=== PATIENT | female | born 1960 | race African-American/Black ===

== ENCOUNTER 2023-08-08 14:47 | Inpatient (IN) | payer OTHER ==
[2023-08-08 15:46] VITALS: BMI 20.9
[2023-08-08] MEDS ORDERED: MAG HYDROX/AL HYDROX/SIMETH 30 ML UNIT-DOSE CUP PO PRN (16:23)
[2023-08-08] MEDS ORDERED: IBUPROFEN 600 MG TABLET (FP) PO PRN (16:23)
[2023-08-08] MEDS ORDERED: NALOXONE HCL 0.4 MG/ML VIAL IM PRN (16:23)
[2023-08-08] MEDS ORDERED: guaiFENesin 600 MG TABLET.ER (FP) PO PRN (16:23)
[2023-08-08] MEDS ORDERED: POLYETHYLENE GLYCOL (HEALTHYLAX) 3350 17 GM PACKET PO PRN (16:23)
[2023-08-08] MEDS ORDERED: BENZOCAINE/MENTHOL (CHLORASEPTIC ) LOZENGE MM PRN (16:23)
[2023-08-08] MEDS ORDERED: BENZONATATE 200 MG CAPSULE PO PRN (16:23)
[2023-08-08] MEDS ORDERED: NALOXONE HCL (KLOXXADO) 8 MG SPRAY NS PRN (16:23)
[2023-08-08] MEDS ORDERED: MAGNESIUM HYDROX 2400MG/30ML ORAL SUSPENSION 30 ML CUP PO PRN (16:23)
[2023-08-08] MEDS ORDERED: IBUPROFEN 400 MG TABLET (FP) PO PRN (16:23)
[2023-08-08] MEDS ORDERED: LOPERAMIDE HCL 2 MG CAPSULE PO PRN (16:23)
[2023-08-08] MEDS ORDERED: TUBERCULIN PPD 5 TU/0.1ML VIAL ID ONE ×2 (19:18→22:19)
[2023-08-08] MEDS: TUBERCULIN PPD 5 TU/0.1ML SYRINGE (IN PATIENT USE ONLY) ID ONE (19:43)
[2023-08-08] MEDS: MELATONIN 5 MG TABLETS PO SCH (21:33)
[2023-08-08] MEDS: THIAMINE 100 MG TABLET PO SCH (21:33)
[2023-08-08] MEDS: NAPROXEN 500 MG TABLET PO SCH (21:35)
[2023-08-08] MEDS: DOCUSATE SODIUM 100 MG CAPSULE (FP) PO SCH (21:35)
[2023-08-09] MEDS: LEVOTHYROXINE NA 100 MCG TABLET (FP) PO SCH (06:14)
[2023-08-09] MEDS: PRENATAL VITAMINS W/ FOLIC ACID TABLET (FP) PO SCH (09:57)
[2023-08-09] MEDS: PANTOPRAZOLE 40 MG TABLET PO SCH (09:57)
[2023-08-09] MEDS: ASPIRIN 81 MG CHEWABLE TABLETS PO SCH (09:57)
[2023-08-09] MEDS ORDERED: NALOXONE HCL 0.4 MG/ML VIAL IVPUSH PRN (14:26)
[2023-08-09] MEDS ORDERED: NALOXONE (NYS OPIOID OVERDOSE PROGRAM) 4 MG/0.1 ML SPRAY NS PRN (14:26)
[2023-08-09] MEDS ORDERED: IBUPROFEN 600 MG TABLET (FP) PO PRN (14:26)
[2023-08-09] MEDS ORDERED: IBUPROFEN 400 MG TABLET (FP) PO PRN (14:26)
[2023-08-09] MEDS: METHOCARBAMOL 500 MG TABLET PO PRN (15:28)
[2023-08-09 15:52] LABS: EPI CELLS >36 /uL (0-25.1); HYALINE CASTS 4 /uL (0-3.1); PH,URINE 5.5 (5.0-8.0); URINE APPEARANCE CLOUDY; URINE BACTERIA >9,000 /uL (0-1359); URINE BILIRUBIN NEGATIVE (NEGATIVE); URINE COLOR YELLOW; URINE GLUCOSE (UA) NEGATIVE (NEGATIVE); URINE KETONE NEGATIVE (NEGATIVE); URINE LEUK ESTERASE 1+ (NEGATIVE); URINE NITRITE POSITIVE (NEGATIVE); URINE PROTEIN 1+ (NEGATIVE); URINE RBC 9 /uL (0-23.9); URINE UROBILINOGEN 0.2 mg/dL (0.2-1.0); URINE WBC 182 /uL (0-25.8)
[2023-08-09] MEDS: FERROUS SO4 325 MG TABLET (FP) PO SCH (19:40)
[2023-08-09] MEDS: ACETAMINOPHEN 325 MG TABLET (FP) PO PRN (19:41)
[2023-08-09] MEDS: NICOTINE POLACRILEX 2 MG GUM BUC PRN (19:43)
[2023-08-10] MEDS: ONDANSETRON *ODT* 4 MG TABLET SL PRN (07:37)
[2023-08-10] MEDS: NICOTINE 21 MG/24 HOURS TOPICAL PATCH TD SCH (09:53)
[2023-08-10] MEDS ORDERED: diazePAM 5 MG TABLET PO PRN (10:42)
[2023-08-10] MEDS ORDERED: BUPRENORPHINE HCL 150 MCG, BUPRENORPHINE HCL 75 MCG BC PRN (10:42)
[2023-08-10] MEDS: BUPRENORPHINE HCL 150 MCG, BUPRENORPHINE HCL 75 MCG BC ONE (11:01)
[2023-08-10] MEDS: cloNIDine HCL 0.1 MG TABLET PO ONE (11:08)
[2023-08-10 14:39] LABS: POTASSIUM 3.7 mmol/L (3.5-5.1)
[2023-08-10 14:42] LABS: ALBUMIN 3.7 g/dl (3.4-5.0); CALCIUM 9.2 mg/dL (8.5-10.1); MAGNESIUM 1.8 mg/dL (1.8-2.4)
[2023-08-10 14:45] LABS: CREATININE 0.9 mg/dL (0.55-1.3)
[2023-08-10 14:47] LABS: BILIRUBIN,TOTAL 0.5 mg/dL (0.2-1); HEMATOCRIT 31.5 % (32.4-45.2); HEMOGLOBIN 10.7 GM/dL (10.7-15.3); MCH 32.1 pg (25.7-33.7); MEAN CELL VOLUME 94.3 fl (80-96); MEAN PLT VOLUME 8.4 fl (7.5-11.1); PLATELET COUNT 375 10^3/uL (134-434); RBC 3.34 M/mm3 (3.60-5.2); RDW 15.1 % (11.6-15.6); TOT PROT 6.2 g/dl (6.4-8.2); WHITE BLOOD COUNT 6.5 K/mm3 (4.0-10.0)
[2023-08-10 14:48] LABS: INR 0.99 (0.83-1.09); PROTHROMBIN TIME (PATIENT) 11.2 SEC (9.7-13.0)
[2023-08-10] MEDS: CHOLECALCIFEROL (VIT D3) 400 UNIT (10 MCG) TABLET PO SCH (16:30)
[2023-08-10] MEDS: cloNIDine HCL 0.1 MG TABLET PO PRN (19:43)
[2023-08-10] MEDS: SULFAMETHOXAZOLE/TRIMETHOPRIM 800MG/160MG D.S. TABLET PO SCH (21:26)
[2023-08-10 23:53] LABS: EPI CELLS >36 /uL (0-25.1); HYALINE CASTS 1 /uL (0-3.1); PH,URINE 7.5 (5.0-8.0); URINE APPEARANCE CLOUDY; URINE BACTERIA >9,000 /uL (0-1359); URINE BILIRUBIN NEGATIVE (NEGATIVE); URINE COLOR YELLOW; URINE GLUCOSE (UA) NEGATIVE (NEGATIVE); URINE KETONE NEGATIVE (NEGATIVE); URINE LEUK ESTERASE TRACE (NEGATIVE); URINE NITRITE POSITIVE (NEGATIVE); URINE PROTEIN NEGATIVE (NEGATIVE); URINE RBC 10 /uL (0-23.9); URINE UROBILINOGEN 0.2 mg/dL (0.2-1.0); URINE WBC 114 /uL (0-25.8)
[2023-08-11] MEDS ORDERED: BUPRENORPHINE HCL 150 MCG, BUPRENORPHINE HCL 75 MCG BC PRN
[2023-08-11] MEDS: hydrOXYzine PAMOATE 25 MG CAPSULE (FP) PO PRN (00:10)
[2023-08-11] MEDS: BUPRENORPHINE HCL 150 MCG, BUPRENORPHINE HCL 75 MCG BC SCH (05:38)
[2023-08-11] MEDS: MELATONIN 5 MG TABLETS PO SCH (21:23)
[2023-08-11] MEDS: BACITRACIN ZINC 15 GM TUBE TOPICAL OINTMENT TP SCH (21:26)
[2023-08-12] MEDS: BUPRENORPHINE HCL 450 MCG FILM BC SCH (05:52)
[2023-08-12] MEDS: BENZOCAINE 20 % GEL TUBE MM PRN (14:35)
[2023-08-12] MEDS: METHOCARBAMOL 500 MG TABLET PO ONE (18:34)
[2023-08-12 22:46] VITALS: BP 149/98; PULSE 80; RESP 19; TEMP 97.6
[2023-08-12] MEDS: TRIMETHOBENZAMIDE HCL 200MG/2ML INJ IM ONE (22:52)
[2023-08-13] MEDS: BUPRENORPHINE/NALOXONE 4 MG/1 MG FILM PACKET SL SCH (06:23)
== END 2023-08-13 06:39 | disposition short-term general hospital (02) | DRG 772 ==
LOC: YASAS 14:47 → Y5N 17:11
PROVIDERS: ADMIT Allergy & Immunology; ATTEND Allergy & Immunology
PROC: HZ42ZZZ Group Counseling for Substance Abuse Treatment, Cognitive-Behavioral (ICD-10-PCS; principal; 2023-08-08)
DX: F11.20 Opioid dependence, uncomplicated (principal); F17.210 Nicotine dependence, cigarettes, uncomplicated; I10 Essential (primary) hypertension; E78.5 Hyperlipidemia, unspecified; E03.9 Hypothyroidism, unspecified; R10.9 Unspecified abdominal pain; R11.2 Nausea with vomiting, unspecified; K21.9 Gastro-esophageal reflux disease without esophagitis; K08.89 Other specified disorders of teeth and supporting structures; N39.0 Urinary tract infection, site not specified
CPT/HCPCS: 36415; 71045-TC-FY; 80053; 80305; 80307; 81003; 82140; 82306; 83735; 84484; 85025; 85027; 85610; 85730; 86803; 87086; 93005; 93010; 99282-25; Q0162

== ENCOUNTER 2023-08-12 23:36 | Inpatient (IN) | payer OTHER ==
[2023-08-13] MEDS ORDERED: morphine SULFATE 4 MG/ML VIAL ONE (00:31)
[2023-08-13] MEDS ORDERED: ACETAMINOPHEN INJECTION 100 ML IVPB ONE (00:31)
[2023-08-13] MEDS: ACETAMINOPHEN 1000 MG/100 ML BAG IVPB ONE ×2 (01:20→07:02)
[2023-08-13] MEDS: morphine CARPU-JECT 4 MG/1 ML DISP.SYRIN IVPUSH ONE (01:21)
[2023-08-13] MEDS: SODIUM CHLORIDE 0.9% 500 ML INFUS.BAG IV ONE (01:22)
[2023-08-13 01:24] LABS: BASO % 0.6 % (0-2.0); EOS % 0.3 % (0-4.5); HEMOGLOBIN 11.9 GM/dL (10.7-15.3); LYMPH % 13.8 % (8-40); MCH 32.1 pg (25.7-33.7); MCHC 34.1 g/dl (32.0-36.0); MEAN CELL VOLUME 94.3 fl (80-96); MONO % 3.8 % (3.8-10.2); NEUT % 81.5 % (42.8-82.8); PLATELET COUNT 413 10^3/uL (134-434); RBC 3.71 M/mm3 (3.60-5.2); RDW 14.9 % (11.6-15.6); WHITE BLOOD COUNT 10.3 K/mm3 (4.0-10.0)
[2023-08-13 01:33] LABS: INR 0.95 (0.83-1.09); PROTHROMBIN TIME (PATIENT) 10.7 SEC (9.7-13.0)
[2023-08-13 01:35] LABS: ACTIVATED PTT 29.6 SECONDS (25.2-36.5)
[2023-08-13 01:48] LABS: POTASSIUM 4.4 mmol/L (3.5-5.1)
[2023-08-13 01:49] LABS: CALCIUM 9.6 mg/dL (8.5-10.1); MAGNESIUM 2.2 mg/dL (1.8-2.4)
[2023-08-13 01:53] LABS: CREATININE 1.3 mg/dL (0.55-1.3)
[2023-08-13 01:55] LABS: BILIRUBIN,TOTAL 0.3 mg/dL (0.2-1)
[2023-08-13] MEDS: morphine CARPU-JECT 2 MG/1 ML DISP.SYRIN IVPUSH ONE (04:58)
[2023-08-13 06:10] LABS: EPI CELLS >36 /uL (0-25.1); HYALINE CASTS 1 /uL (0-3.1); PH,URINE 7.5 (5.0-8.0); URINE APPEARANCE CLEAR; URINE BACTERIA 59 /uL (0-1359); URINE BILIRUBIN NEGATIVE (NEGATIVE); URINE COLOR YELLOW; URINE GLUCOSE (UA) NEGATIVE (NEGATIVE); URINE KETONE NEGATIVE (NEGATIVE); URINE LEUK ESTERASE NEGATIVE (NEGATIVE); URINE NITRITE NEGATIVE (NEGATIVE); URINE PROTEIN 1+ (NEGATIVE); URINE RBC 32 /uL (0-23.9); URINE UROBILINOGEN 0.2 mg/dL (0.2-1.0)
[2023-08-13 08:27] LABS: BASO % 0.4 % (0-2.0); EOS % 0.1 % (0-4.5); HEMATOCRIT 31.2 % (32.4-45.2); HEMOGLOBIN 10.5 GM/dL (10.7-15.3); LYMPH % 14.8 % (8-40); MCH 32.1 pg (25.7-33.7); MCHC 33.6 g/dl (32.0-36.0); MEAN CELL VOLUME 95.5 fl (80-96); MEAN PLT VOLUME 7.7 fl (7.5-11.1); MONO % 4.8 % (3.8-10.2); NEUT % 79.9 % (42.8-82.8); PLATELET COUNT 373 10^3/uL (134-434); RBC 3.27 M/mm3 (3.60-5.2); RDW 15.2 % (11.6-15.6); WHITE BLOOD COUNT 11.5 K/mm3 (4.0-10.0)
[2023-08-13 08:49] LABS: POTASSIUM 4.6 mmol/L (3.5-5.1)
[2023-08-13 08:52] LABS: ALBUMIN 3.4 g/dl (3.4-5.0); BLOOD UREA NITROGEN 12.7 mg/dL (7-18); MAGNESIUM 2.2 mg/dL (1.8-2.4)
[2023-08-13 08:56] LABS: CREATININE 1.1 mg/dL (0.55-1.3); PHOSPHOROUS 2.9 mg/dL (2.5-4.9)
[2023-08-13 08:58] LABS: BILIRUBIN,TOTAL 0.4 mg/dL (0.2-1); TOT PROT 6.2 g/dl (6.4-8.2)
[2023-08-13] MEDS: ACETAMINOPHEN 325 MG TABLET (FP) PO ONE (09:12)
[2023-08-13] MEDS: LOSARTAN POTASSIUM 50 MG TABLET PO SCH (09:27)
[2023-08-13] MEDS: amLODIPine BESYLATE 10 MG TABLET (FP) PO SCH (09:27)
[2023-08-13] MEDS: NICOTINE 7 MG/24 HOURS TOPICAL PATCH TD SCH (10:23)
[2023-08-13 10:39] VITALS: BMI 21.9
[2023-08-13 11:53] LABS: COCAINE, UR NEGATIVE (NEGATIVE); METHADONE, UR NEGATIVE (NEGATIVE); PHENCYCLIDINE,URINE NEGATIVE (NEGATIVE); URINE AMPHETAMINES NEGATIVE (NEGATIVE); URINE BARBITURATES NEGATIVE (NEGATIVE); URINE BENZODIAZEPINES NEGATIVE (NEGATIVE)
[2023-08-13 11:54] LABS: OPIATES, URI POSITIVE (NEGATIVE)
[2023-08-13] MEDS: LACTATED RINGERS SOLUTION 1,000 ML/1,000 ML INFUS.BAG IV SCH (12:11)
[2023-08-13] MEDS: morphine SULFATE 4 MG/ML VIAL IVPUSH PRN (13:04)
[2023-08-13 13:20] LABS: URINE WBC 73.7 /uL (0-25.8)
[2023-08-13] MEDS: ACETAMINOPHEN 1000 MG/100 ML BAG IVPB SCH (14:53)
[2023-08-13] MEDS: PANTOPRAZOLE SODIUM 40 MG VIAL IVPUSH ONE (17:47)
[2023-08-13] MEDS: LABETALOL HCL 5 MG/1 ML (100MG/20 ML VIAL) IVPB ONE (18:35)
[2023-08-13] MEDS: LABETALOL HCL 5 MG/1 ML (100MG/20 ML VIAL) IVPUSH ONE (18:51)
[2023-08-13] MEDS: SODIUM CHLORIDE 1,000 ML IV SCH (18:51)
[2023-08-14] MEDS: LABETALOL HCL 5 MG/1 ML (100MG/20 ML VIAL) IVPB ONE ×2 (03:02→04:40)
[2023-08-14 07:04] LABS: HEMOGLOBIN 10.1 GM/dL (10.7-15.3); MCH 32.3 pg (25.7-33.7); MCHC 33.8 g/dl (32.0-36.0); MEAN CELL VOLUME 95.5 fl (80-96); MEAN PLT VOLUME 7.9 fl (7.5-11.1); PLATELET COUNT 366 10^3/uL (134-434); RBC 3.14 M/mm3 (3.60-5.2); RDW 15.3 % (11.6-15.6); WHITE BLOOD COUNT 9.9 K/mm3 (4.0-10.0)
[2023-08-14 07:37] LABS: POTASSIUM 4.8 mmol/L (3.5-5.1)
[2023-08-14 07:39] LABS: CALCIUM 9.1 mg/dL (8.5-10.1)
[2023-08-14 07:44] LABS: CREATININE 1.1 mg/dL (0.55-1.3)
[2023-08-14 07:45] LABS: BILIRUBIN,TOTAL 0.5 mg/dL (0.2-1); TOT PROT 5.6 g/dl (6.4-8.2)
[2023-08-14] MEDS: ENOXAPARIN NA (PORCINE) 40 MG/0.4 ML DISP.SYRIN SQ SCH (10:30)
[2023-08-14] MEDS: LEVOTHYROXINE SODIUM 100 MCG 5 ML VIAL IVPUSH SCH (10:31)
[2023-08-14] MEDS: LABETALOL HCL 5 MG/1 ML (100MG/20 ML VIAL) IVPB PRN (10:33)
[2023-08-14] MEDS: morphine SULFATE 4 MG/ML VIAL IVPUSH PRN (12:40)
[2023-08-15 08:14] LABS: HEMOGLOBIN 10.3 GM/dL (10.7-15.3); MCH 32.2 pg (25.7-33.7); MCHC 33.4 g/dl (32.0-36.0); MEAN CELL VOLUME 96.4 fl (80-96); MEAN PLT VOLUME 7.6 fl (7.5-11.1); PLATELET COUNT 381 10^3/uL (134-434); RBC 3.21 M/mm3 (3.60-5.2); RDW 15.3 % (11.6-15.6); WHITE BLOOD COUNT 7.9 K/mm3 (4.0-10.0)
[2023-08-15 08:28] LABS: POTASSIUM 4.1 mmol/L (3.5-5.1)
[2023-08-15 08:31] LABS: BLOOD UREA NITROGEN 10.1 mg/dL (7-18); CALCIUM 8.8 mg/dL (8.5-10.1); MAGNESIUM 2.1 mg/dL (1.8-2.4)
[2023-08-15 08:33] LABS: PHOSPHOROUS 3.9 mg/dL (2.5-4.9)
[2023-08-15 08:34] LABS: CREATININE 0.9 mg/dL (0.55-1.3)
[2023-08-15 08:35] LABS: BILIRUBIN,TOTAL 0.6 mg/dL (0.2-1); TOT PROT 5.8 g/dl (6.4-8.2)
[2023-08-15] MEDS: AMINO ACIDS 4.25%/D5W 1,000 ML IV SCH (10:32)
[2023-08-15] MEDS: LACTATED RINGERS SOLUTION 1,000 ML/1,000 ML INFUS.BAG IV SCH (10:33)
[2023-08-15] MEDS: FAT EMULSION/OLIVE/SOY/PHOSPHO 250 ML IV SCH (21:49)
[2023-08-15] MEDS: MELATONIN 5 MG TABLETS PO ONE (21:50)
[2023-08-15] MEDS ORDERED: FAT EMULSION/OLIVE/SOY (CLINOLIPID) 250 ML EMULSION IV SCH (22:00)
[2023-08-16 07:51] LABS: HEMATOCRIT 30.7 % (32.4-45.2); HEMOGLOBIN 10.3 GM/dL (10.7-15.3); MCH 32.2 pg (25.7-33.7); MCHC 33.6 g/dl (32.0-36.0); MEAN CELL VOLUME 95.8 fl (80-96); MEAN PLT VOLUME 7.6 fl (7.5-11.1); PLATELET COUNT 361 10^3/uL (134-434); RBC 3.21 M/mm3 (3.60-5.2); RDW 14.7 % (11.6-15.6); WHITE BLOOD COUNT 9.3 K/mm3 (4.0-10.0)
[2023-08-16 08:11] LABS: POTASSIUM 3.6 mmol/L (3.5-5.1)
[2023-08-16 08:20] LABS: ALBUMIN 3.1 g/dl (3.4-5.0); BLOOD UREA NITROGEN 30.3 mg/dL (7-18); CALCIUM 9.1 mg/dL (8.5-10.1)
[2023-08-16 08:23] LABS: CREATININE 1.1 mg/dL (0.55-1.3)
[2023-08-16 08:25] LABS: BILIRUBIN,TOTAL 0.4 mg/dL (0.2-1); TOT PROT 5.8 g/dl (6.4-8.2)
[2023-08-16] MEDS: LABETALOL HCL 5 MG/1 ML (100MG/20 ML VIAL) IVPB SCH (11:40)
[2023-08-16] MEDS: LOSARTAN POTASSIUM 50 MG TABLET PO SCH (14:39)
[2023-08-16] MEDS: oxyCODONE HCL 5 MG TABLET PO PRN (19:01)
[2023-08-16] MEDS: DOCUSATE SODIUM 100 MG CAPSULE (FP) PO ONE (21:33)
[2023-08-16] MEDS: MELATONIN 5 MG TABLETS PO ONE (21:33)
[2023-08-16 21:59] VITALS: RESP 18
[2023-08-17] MEDS: SIMETHICONE 80 MG TAB.CHEW (FP) PO ONE (06:21)
[2023-08-17 08:13] LABS: EOS % 3.1 % (0-4.5); HEMATOCRIT 31.9 % (32.4-45.2); HEMOGLOBIN 10.8 GM/dL (10.7-15.3); LYMPH % 19.9 % (8-40); MCH 32.7 pg (25.7-33.7); MCHC 33.9 g/dl (32.0-36.0); MEAN CELL VOLUME 96.5 fl (80-96); MEAN PLT VOLUME 7.8 fl (7.5-11.1); MONO % 7.1 % (3.8-10.2); NEUT % 68.9 % (42.8-82.8); PLATELET COUNT 356 10^3/uL (134-434); RBC 3.31 M/mm3 (3.60-5.2); RDW 15.3 % (11.6-15.6); WHITE BLOOD COUNT 6.7 K/mm3 (4.0-10.0)
[2023-08-17 08:31] LABS: POTASSIUM 3.7 mmol/L (3.5-5.1)
[2023-08-17 08:42] LABS: CREATININE 0.8 mg/dL (0.55-1.3)
[2023-08-17 08:43] LABS: BLOOD UREA NITROGEN 30.4 mg/dL (7-18); TOT PROT 6.1 g/dl (6.4-8.2)
[2023-08-17 08:46] LABS: CALCIUM 8.7 mg/dL (8.5-10.1); MAGNESIUM 2.1 mg/dL (1.8-2.4)
[2023-08-17] MEDS ORDERED: LEVOTHYROXINE NA 100 MCG TABLET (FP) PO SCH (08:46)
[2023-08-17 08:53] LABS: BILIRUBIN,TOTAL 0.5 mg/dL (0.2-1)
[2023-08-17 13:06] VITALS: BP 103/66; PULSE 73; TEMP 98.1
[2023-08-18] MEDS ORDERED: LEVOTHYROXINE NA 100 MCG TABLET (FP) PO SCH (07:00)
== END 2023-08-17 10:05 | disposition other institution (70) | DRG 247 ==
LOC: JER 23:36 → JERBED 08-13 04:46 → J7W 08-13 06:25 → J8W 08-14 13:30
PROVIDERS: ADMIT Student in an Organized Health Care Education/Training Program; ATTEND Nurse Practitioner Family
DX: K56.609 Unspecified intestinal obstruction, unspecified as to partial versus complete obstruction (principal); F11.20 Opioid dependence, uncomplicated; I10 Essential (primary) hypertension; E03.9 Hypothyroidism, unspecified; E78.5 Hyperlipidemia, unspecified; F17.210 Nicotine dependence, cigarettes, uncomplicated; I16.0 Hypertensive urgency; K21.9 Gastro-esophageal reflux disease without esophagitis; R11.2 Nausea with vomiting, unspecified; R14.0 Abdominal distension (gaseous); R73.9 Hyperglycemia, unspecified
CPT/HCPCS: 36415; 71045-TC-FY; 74019-TC-FY; 74177-TC; 80053; 80307; 81003; 83605; 83690; 83735; 84100; 84484; 85025; 85027; 85610; 85730; 87040; 87086; 93005; 93010; 99285-25; J0131

== ENCOUNTER 2023-08-17 10:29 | Inpatient (IN) | payer OTHER ==
[2023-08-17] MEDS ORDERED: LOPERAMIDE HCL 2 MG CAPSULE PO PRN (11:34)
[2023-08-17] MEDS ORDERED: BENZONATATE 200 MG CAPSULE PO PRN (11:34)
[2023-08-17] MEDS ORDERED: IBUPROFEN 400 MG TABLET (FP) PO PRN (11:34)
[2023-08-17] MEDS ORDERED: guaiFENesin 600 MG TABLET.ER (FP) PO PRN (11:34)
[2023-08-17] MEDS ORDERED: POLYETHYLENE GLYCOL (HEALTHYLAX) 3350 17 GM PACKET PO PRN (11:34)
[2023-08-17] MEDS ORDERED: NALOXONE HCL (KLOXXADO) 8 MG SPRAY NS PRN (11:34)
[2023-08-17] MEDS ORDERED: MAG HYDROX/AL HYDROX/SIMETH 30 ML UNIT-DOSE CUP PO PRN (11:34)
[2023-08-17] MEDS ORDERED: BENZOCAINE/MENTHOL (CHLORASEPTIC ) LOZENGE MM PRN (11:34)
[2023-08-17] MEDS ORDERED: NALOXONE HCL 0.4 MG/ML VIAL IM PRN (11:34)
[2023-08-17 11:49] VITALS: BMI 18.8
[2023-08-17] MEDS: ACETAMINOPHEN 325 MG TABLET (FP) PO PRN (20:39)
[2023-08-17] MEDS: MAGNESIUM HYDROX 2400MG/30ML ORAL SUSPENSION 30 ML CUP PO PRN (20:41)
[2023-08-17] MEDS: THIAMINE 100 MG TABLET PO SCH (22:33)
[2023-08-17] MEDS: MELATONIN 5 MG TABLETS PO SCH (22:33)
[2023-08-18] MEDS: LEVOTHYROXINE NA 100 MCG TABLET (FP) PO SCH (06:14)
[2023-08-18] MEDS: amLODIPine BESYLATE 10 MG TABLET (FP) PO SCH (10:27)
[2023-08-18] MEDS: LOSARTAN POTASSIUM 50 MG TABLET PO SCH (10:27)
[2023-08-18] MEDS: ASPIRIN 81 MG CHEWABLE TABLETS PO SCH (10:27)
[2023-08-18] MEDS: PRENATAL VITAMINS W/ FOLIC ACID TABLET (FP) PO SCH (10:27)
[2023-08-18] MEDS: PANTOPRAZOLE 40 MG TABLET PO SCH (10:27)
[2023-08-18] MEDS: NICOTINE 7 MG/24 HOURS TOPICAL PATCH TD SCH (10:28)
[2023-08-18 11:36] LABS: HEMATOCRIT 32.8 % (32.4-45.2); HEMOGLOBIN 11.1 GM/dL (10.7-15.3); MCH 32.6 pg (25.7-33.7); MCHC 33.7 g/dl (32.0-36.0); MEAN CELL VOLUME 96.7 fl (80-96); MEAN PLT VOLUME 8.5 fl (7.5-11.1); PLATELET COUNT 378 10^3/uL (134-434); RBC 3.39 M/mm3 (3.60-5.2); RDW 15.9 % (11.6-15.6); WHITE BLOOD COUNT 8.5 K/mm3 (4.0-10.0)
[2023-08-18 12:02] LABS: POTASSIUM 3.7 mmol/L (3.5-5.1)
[2023-08-18 12:12] LABS: CREATININE 1.1 mg/dL (0.55-1.3)
[2023-08-18 12:13] LABS: TOT PROT 6.6 g/dl (6.4-8.2)
[2023-08-18 12:15] LABS: CALCIUM 9.4 mg/dL (8.5-10.1)
[2023-08-18 12:16] LABS: BLOOD UREA NITROGEN 33.5 mg/dL (7-18)
[2023-08-18 12:19] LABS: BILIRUBIN,TOTAL 0.4 mg/dL (0.2-1)
[2023-08-18 12:20] LABS: ALBUMIN 3.6 g/dl (3.4-5.0)
[2023-08-18] MEDS: DICYCLOMINE HCL 10 MG CAPSULE PO PRN (17:37)
[2023-08-18 18:35] LABS: EPI CELLS >36 /uL (0-25.1); HYALINE CASTS 7 /uL (0-3.1); URINE APPEARANCE CLEAR; URINE BACTERIA 47 /uL (0-1359); URINE BILIRUBIN NEGATIVE (NEGATIVE); URINE COLOR YELLOW; URINE GLUCOSE (UA) NEGATIVE (NEGATIVE); URINE KETONE NEGATIVE (NEGATIVE); URINE LEUK ESTERASE 2+ (NEGATIVE); URINE NITRITE NEGATIVE (NEGATIVE); URINE PROTEIN 1+ (NEGATIVE); URINE RBC 39 /uL (0-23.9); URINE UROBILINOGEN 0.2 mg/dL (0.2-1.0); URINE WBC 409 /uL (0-25.8)
[2023-08-18] MEDS: hydrOXYzine PAMOATE 25 MG CAPSULE (FP) PO PRN (22:39)
[2023-08-18] MEDS: IBUPROFEN 600 MG TABLET (FP) PO PRN (22:39)
[2023-08-19 07:26] VITALS: RESP 16; TEMP 98.4
[2023-08-19 09:25] VITALS: BP 112/70; PULSE 79
== END 2023-08-19 11:15 | disposition home or self-care (01) | DRG 772 ==
LOC: YASAS 10:29 → Y3NR 13:15 → Y5N 08-18 11:06
PROVIDERS: ADMIT Allergy & Immunology; ATTEND Psychiatry & Neurology Pain Medicine
PROC: HZ42ZZZ Group Counseling for Substance Abuse Treatment, Cognitive-Behavioral (ICD-10-PCS; principal; 2023-08-17)
DX: F11.20 Opioid dependence, uncomplicated (principal); F17.210 Nicotine dependence, cigarettes, uncomplicated; E03.9 Hypothyroidism, unspecified; E78.5 Hyperlipidemia, unspecified; I10 Essential (primary) hypertension; G47.00 Insomnia, unspecified; K21.9 Gastro-esophageal reflux disease without esophagitis; Z63.4 Disappearance and death of family member; Z87.19 Personal history of other diseases of the digestive system
CPT/HCPCS: 36415; 80053; 80305; 81003; 81025; 82550; 84484; 85027; 87811; 93005; 93010